=== PATIENT | female | born 2005 | race Hispanic/Latino ===

== ENCOUNTER 2024-10-15 19:34 | Emergency (ER) | payer OTHER ==
[~2024-10-15] VITALS: Ht 167.6 cm; Wt 72.6 kg
--- NOTE | 2024-10-15 19:54 | ERN ---
ED Note History of Present Illness Stated Complaint: KNEE PAIN, HURTS TO MOVE Chief Complaint: Knee Injury/Swelling Time Seen by MD: 19:35 Time Seen by Midlevel: 19:35 Dictation: The patient is a 19-year-old female with no significant medical history who presents to the emergency department with complaints of left knee pain. Patient reports that two months ago she had a fall and injured her knee and it has been hurting since but today at work around 11:00 a.m. she fell on her knee again while cleaning due the pain. Denies any other injuries. Allergies: Coded Allergies: No Known Allergies (Unverified Allergy, Unknown, 10/15/24) Past Medical History Past Medical History: No Pertinent History Surgical History: None LMP: Oct 07, 2024 RN Note Reviewed/Agreed w/PFSH: Yes Review of System Dictation Constitutional: Negative for fever,chills, and weight loss Eyes: Negative for injury, pain,redness, and discharge ENT: Negative for injury,pain or swelling Cardiovascular: Negative for chest pain, palpitations, and edema Respiratory: Negative for shortness of breath, cough, and wheezing, Abdomen/GI: Negative for abdominal pain, nausea, vomiting, diarrhea, and constipation Back: Negative for injury and pain : Negative for injury, bleeding and discharge MS/Extremity: positive for left knee pain Skin: Negative for rash, and discoloration Neuro: Negative for headache, weakness, numbness, tingling, and seizure Psych: Negative for suicide ideation, homicidal ideation, and hallucinations Initial Vital Sign VS Vital Signs Date Time Temp Pulse Resp B/P (MAP) Pulse Ox O2 Delivery O2 Flow Rate FiO2 10/15/24 19:35 98.6 87 20 135/69 100 Room Air Physical Exam Dictation Vital Signs reviewed General Appearance: Alert, oriented x 3, no acute distress, well developed, nourished. Head and Face: non-traumatic. Eyes: PERRL, pink conjunctivas, eyelid no trauma, anterior chamber with arcus senilis. Ears: Pinnas intact and no signs of trauma or erythema ear canals clear and no discharge TM no erythema Nose: No discharge, no bleeding. Oropharynx: Mouth normal, tongue pink. pharynx clear,no erythema, tonsils no exudates, no abscesses noted, mucous membrane moist Neck: Supple, non-tender, no thyromegaly, no masses, no JVD, no bruits Breast:Deferred Chest:No tenderness, no crepitus, no paradoxical movement, no retractions Lungs:Clear, well-ventilated, symmetric, no rales, no wheezing, no rhonchi, no stridor, good breath sounds bilaterally Heart: Regular rate, regular rhythm, no murmur, no gallops Vascular: no peripheral edema, cap refill less than 2 seconds, dorsalis pedis 3+ bilaterally Abdomen: Soft, positive bowel sounds, nondistended, no guarding, nontender, no rebound, no masses no hepatomegaly, no splenomegaly, no Scales's sign, no hernias. Rectal: Deferred Genital: Deferred Neurological: Normal speech, motor function intact, sensory function intact Musculoskeletal: Neck nontender, full range of motion, back nontender, full range of motion, Extremities: nontender, full range of motion , no open wounds to knee, full range of motion, ambulatory Skin: Color pink, dry, no turgor, no rash, no lacerations, no abrasions, no contusions. Lymphatic: Deferred Results (Laboratory/Radiology) Laboratory/Radiology Laboratory Tests Test 10/15/24 20:10 Urine HCG, Qualitative NEGATIVE (NEGATIVE) REASON: pain, injury ORDERING PHYSICIAN: MANAS GIL COMMUTATOR OPERATOR PROCEDURE: KNEE 3V LT - KNEE 3VWS LT KNEE 3VWS LT HISTORY: Pain COMPARISON: None TECHNIQUE: 3 images of left knee were obtained. FINDINGS: There is no acute displaced fracture or dislocation. Soft tissue swelling is seen. IMPRESSION: 1. Findings as described above. Labs Reviewed?: Yes ED Course ED Course Orders Procedure Category Date Status Time ,Urine Test LAB 10/15/24 Complete 19:45 Knee 3vws Lt RAD 10/15/24 Resulted 19:45 Ketorolac 60mg/2ml PHA 10/15/24 Complete (Toradol 60mg/2ml) 20:00 Current Medications Medications (Trade) Dose Ordered Sig/Fay Route PRN Reason Start Time Stop Time Status Last Admin Dose Admin Ketorolac Tromethamine (toRADol 60MG/ 2ML) 60 mg ONCE ONCE IM 10/15/24 20:00 10/15/24 20:01 DC Vital Signs Date Time Temp Pulse Resp B/P (MAP) Pulse Ox O2 Delivery O2 Flow Rate FiO2 10/15/24 19:35 98.6 87 20 135/69 100 Room Air Medical Decision Making MDM The patient is a 19-year-old female with no significant medical history who presents to the emergency department with complaints of left knee pain. Patient reports that two months ago she had a fall and injured her knee and it has been hurting since but today at work around 11:00 a.m. she fell on her knee again while cleaning due the pain. Denies any other injuries. X-ray showed no acute fractures or dislocations. Small soft tissue swelling. Patient ambulatory, neurovascularly intact. Will be placed on a knee immobilizer and instructed to follow up with PCP. Differential diagnosis: Knee dislocation, knee fracture, knee sprain Need for hospitalization: Patient does not meet criteria for hospitalization. There are no social concerns with this patient. DX & DISP Disposition: Discharge Departure Impression: Primary Impression: Left knee sprain Condition: Stable Scripts Ibuprofen (Ibuprofen) 600 Mg Tablet 600 MG PO Q6H PRN for PAIN, #15 TAB Prov: MANAS GIL 10/15/24 Additional Instructions: Please follow up with your primary doctor in 1-2 days. Avoid any physical activity that can further injure your knee. FOLLOW-UP WITH PRIMARY CARE PROVIDER IN 1 TO 2 DAYS. TAKE MEDICATIONS DIRECTED HERE IN THE EMERGENCY ROOM. OKAY TO CONTINUE HOME MEDICATIONS UNLESS OTHERWISE DISCUSSED DURING YOUR VISIT IN THE EMERGENCY ROOM TODAY. RETURN TO YOUR NEAREST EMERGENCY ROOM IF SYMPTOMS WORSEN OR IF THERE IS NO IMPROVEMENT. CALL 911 IF YOU NEED IMMEDIATE ASSISTANCE. TAKE TYLENOL OR MOTRIN [id number] NEEDED AND IF NO CONTRAINDICATIONS ARE PRESENT. INCREASE ORAL HYDRATION. A WOUND CULTURE OR URINE CULTURE WAS ORDERED HERE IN THE EMERGENCY ROOM DEPARTMENT PLEASE FOLLOW-UP WITH PRIMARY CARE PROVIDER AND ADVISE THEM TO GET REPEAT PORTS FROM OUR FACILITY. IF YOU HAD ANY OSCAR WRAP/SPLINTS THAT WERE APPLIED HERE, PLEASE DO NOT REMOVE THEM UNTIL YOU SEE YOUR PRIMARY CARE OR SPECIALTY. Referrals: SELF,REFERRAL (PCP) GRETTA LOCKETT MD Time of Disposition: 20:31 I have reviewed the case, and I agree with, Diagnosis and Plan MANAS GIL Oct 15, 2024 19:54
--- NOTE | 2024-10-15 20:25 | HMCIMG ---
KNEE 3VWS LT HISTORY: Pain COMPARISON: None TECHNIQUE: 3 images of left knee were obtained. FINDINGS: There is no acute displaced fracture or dislocation. Soft tissue swelling is seen. IMPRESSION: 1. Findings as described above.
[2024-10-15] MEDS: ketOROlac 60 MG VIAL (30MG/ML) IM ONE (20:31)
[2024-10-15] MEDS ORDERED: IBUP-2070 PO (20:32)
--- NOTE | 2024-10-15 20:42 | NUR ---
KNEE IMMOBILIZER APPLIED TO LEFT KNEE. CRUTCH USE EDUCATION GIVEN TO PT
[2024-10-15 20:59] VITALS: BP 112/61; PULSE 78; RESP 18; TEMP 97.5; O2SAT 98
== END 2024-10-15 21:00 | disposition home or self-care (01) ==
LOC: EDH 19:34
DX: S83.92XA Sprain of unspecified site of left knee, initial encounter (principal); W18.39XA Other fall on same level, initial encounter; Y93.89 Activity, other specified; Y92.89 Other specified places as the place of occurrence of the external cause; Y99.8 Other external cause status
CPT/HCPCS: 99284; 29505; 81025; 73562; 96372; J1885

== ENCOUNTER 2025-02-28 21:50 | Emergency (ER) | payer MEDICAID ==
[~2025-02-28] VITALS: Ht 162.6 cm; Wt 77.6 kg
[~2025-02-28 21:50] MED LIST: IBUP-1492 PO
[2025-02-28 22:15] VITALS: BP 130/76; PULSE 103; RESP 20; TEMP 99.6; O2SAT 97
[2025-02-28] MEDS: LACTATED RINGERS 1000ML IV STA (22:30)
--- NOTE | 2025-02-28 22:35 | ERN ---
General Chief Complaint: OB<20 weeks gest. Stated Complaint: C/O N X V, 8 WKS Time Seen by MD: 21:59 Source: patient History of Present Illness Initial Comments 19-year-old female eight weeks comes in with new onset of nausea vomiting for the last 10 hours. In addition she has lower and right sided abdominal pain and cramps as well as chills. She reports no blood coming out of her vagina and no dysuria. Timing/Duration: 4-6 hours Allergies: Coded Allergies: No Known Allergies (Unverified Allergy, Unknown, 10/15/24) Home Meds Active Scripts Ibuprofen (Ibuprofen) 600 Mg Tablet, 600 MG PO Q6H PRN for PAIN, #15 TAB Prov:MANAS GIL OUTSIDE PRODUCTION INSPECTOR 10/15/24 Past Medical History Past Medical History: No Pertinent History Past Surgical History: None Female( History) LMP: Dec 30, 2024 : 1 Para: 0 Aborts: 0 Constitutional: (+) chills EENTM: (-) eye pain, (-) blurred vision, (-) tearing, (-) double vision, (-) ear pain, (-) ear discharge, (-) nose pain, (-) nose congestion, (-) throat pain, (-) Throat swelling, (-) mouth pain, (-) tooth pain, (-) mouth swelling, (-) other documentation Respiratory: (-) cough, (-) orthopnea, (-) short of breath, (-) stridor, (-) wheezing, (-) other documentation Cardiovascular: (-) chest pain, (-) edema, (-) palpitations, (-) syncope, (-) dyspnea on exertion, (-) other documentation Gastrointestinal/Abdominal: (+) nausea, (+) vomiting Genitourinary: (-) vaginal discharge, (-) vaginal bleeding, (-) dysuria, (-) frequency, (-) hematuria, (-) pain, (-) other documentation Physical Exam General Appearance: (+) moderate distress Orientation: (+) alert, (+) oriented x 3 Head/Face Trauma: No Eye: bilateral eye normal inspection, bilateral eye PERRL, bilateral eye EOMI Ear, Nose, Throat: (+) hearing grossly normal, (+) normal ENT inspection, (+) moist mucous membraine Neck: (+) normal inspection, (+) supple, (+) full range of motion Respiratory: (+) chest non-tender, (+) lungs clear, (+) well ventilated Heart: (+) regular, (+) no gallop Vascular: (+) no edema, (+) normal peripheral pulse Gastrointestinal: (+) soft, (+) non-tender, (+) bowel sound present Results Laboratory and Microbiology Lab and Micro Result Laboratory Tests Test 02/28/25 22:23 02/28/25 22:29 Urine Color YELLOW (YELLOW) Urine Appearance CLEAR (CLEAR) Urine pH 5.5 (5.0-8.0) Urine Specific Davidson 1.028 (1.001-1.031) Urine Protein 10 mg/dL (NEGATIVE) H Urine Glucose (UA) NEGATIVE mg/dL (NEGATIVE) Urine Ketones NEGATIVE mg/dL (NEGATIVE) Urine Occult Blood NEGATIVE (NEGATIVE) Urine Nitrate NEGATIVE (NEGATIVE) Urine Bilirubin NEGATIVE mg/dL (NEGATIVE) Urine Urobilinogen 0.2 mg/dL (0.2-1.0) Urine Leukocyte Esterase NEGATIVE Deborah/uL Urine RBC 0-1 /HPF (0-1) Urine WBC 2-5 /HPF (0-1) H Urine Squamous Epithelial Cells FEW /HPF (0-2) Urine Bacteria None /HPF (None Seen) White Blood Count 9.6 K/uL (4.8-10.8) Red Blood Count 5.09 MIL/uL (4.00-5.50) Hemoglobin 11.9 g/dL (12.0-16.0) L Hematocrit 37.2 % (36-48) Mean Corpuscular Volume 73.1 fL (80-100) L Mean Corpuscular Hemoglobin 23.4 pg (27.0-33.0) L Mean Corpuscular Hemoglobin Concent 32.0 g/dL (32.0-36.0) Red Cell Distribution Width 15.9 % (11.0-15.5) H Platelet Count 381 K/uL (130-400) Mean Platelet Volume 9.8 fL (7.5-10.5) Immature Granulocyte % (Auto) 0.2 % (0-1) Neutrophils (%) (Auto) 85.5 % (40.0-77.0) H Lymphocytes (%) (Auto) 10.3 % (21.0-51.0) L Monocytes (%) (Auto) 3.7 % (3.0-13.0) Eosinophils (%) (Auto) 0.1 % (0.0-8.0) Basophils (%) (Auto) 0.2 % (0.0-5.0) Neutrophils # (Auto) 8.2 K/uL (1.8-7.7) H Lymphocytes # (Auto) 1.0 K/uL (1.0-4.8) Monocytes # (Auto) 0.4 K/uL (0.1-1.0) Eosinophils # (Auto) 0.01 K/uL (0.00-0.70) Basophils # (Auto) 0.02 K/uL (0.00-0.20) Absolute Immature Granulocyte (auto 0.02 K/uL (0-1) Nucleated Red Blood Cells 0.0 % (0.0-0.19) Red Blood Cell Morphology See comments Sodium Level 135 mmol/L (136-145) L Potassium Level 3.3 mmol/L (3.5-5.1) L Chloride Level 100 mmol/L (101-111) L Carbon Dioxide Level 25 mmol/L (21-32) Blood Urea Nitrogen 5 mg/dL (7-18) L Creatinine 0.6 mg/dL (0.5-1.0) Glomerular Filtration Rate Calc 132 mL/min (>90) Random Glucose 114 mg/dL (70-105) H Total Calcium 8.9 mg/dL (8.5-10.1) Magnesium Level 1.80 mg/dL (1.80-2.40) Total Bilirubin 0.6 mg/dL (0.2-1.0) Aspartate Amino Transf (AST/SGOT) 20 U/L (10-37) Alanine Aminotransferase (ALT/SGPT) 26 U/L (12-78) Alkaline Phosphatase 68 U/L (50-136) Total Protein 7.5 g/dL (6.0-8.3) Albumin 3.6 g/dL (3.5-5.0) Human Chorionic Gonadotropin, Quant 832793 mIU/mL (0-5) H MDM MDM: Differential diagnosis: Hyperemesis gravidarum, UTI, gastroenteritis, , hypovolemia Rationale: Tests considered and ordered secondary to shared decision making include: Previous outside records reviewed: Old ER visits. Risk of complication and/or morbidity or mortality of patient management: None Medications-Per medication reconciliation Need for hospitalization: Patient does meet criteria for hospitalization. Need for emergency major/minor surgery: No There are no social concerns with this patient. Prescription drug management Prescriptions will include symptomatic care Patient's prior external medical records from other ER visits were reviewed by me as indicated. Prior testing and results from previous visits were reviewed. Prior tests were taken into account with medical decision making and resource utilization, independent historian/historians were used to obtain complete medical history. I independently interpreted the test that were performed, results were reviewed by me and considered findings on radiology if ordered. Patient's laboratory studies are all normal. Her quantitative beta HCG is consistent with her stated age of . CBC is normal chemistry panel is normal and UA is normal. Patient does feel less dehydrated after receiving a L of fluids. She still has the emesis and. Pyridoxine did not help. ED Course Orders Procedure Category Date Status Time Pyridoxine Hcl 50 Mg PHA 02/28/25 Complete Tablet (Pyridoxine 22:30 Lactated Ringers PHA 02/28/25 Complete 1000ml (Lactated 22:16 Cbc With Differential LAB 02/28/25 Complete 22:16 Comprehensive LAB 02/28/25 Complete Metabolic Panel 22:16 Magnesium LAB 02/28/25 Complete 22:16 Urinalysis Profile LAB 02/28/25 Complete 22:16 Hcg,Quantitative LAB 02/28/25 Complete 22:29 Current Medications Medications (Trade) Dose Ordered Sig/Fay Route PRN Reason Start Time Stop Time Status Last Admin Dose Admin Lactated Ringer's (Lactated Ringers 1000ml) 1,000 ml BOLUS STAT IV 02/28/25 22:16 02/28/25 22:20 DC 02/28/25 22:30 Pyridoxine HCl (PYRIDoxine HCL 50 MG TABLET) 50 mg ONCE ONCE PO 02/28/25 22:30 02/28/25 22:31 DC 02/28/25 22:29 Vital Signs Date Time Temp Pulse Resp B/P (MAP) Pulse Ox O2 Delivery O2 Flow Rate FiO2 02/28/25 22:15 99.7 103 20 130/76 97 Room Air* 0 21 02/28/25 21:52 100.0 104 20 123/62 97 Room Air DX & DISP Disposition: Discharge Departure Impression: Primary Impression: Vomiting Condition: Stable Additional Instructions: You came in with feelings of dehydration +nausea and vomiting. +you had concerns about the health of your baby. The quantitative beta HCG test shows that the is thriving. Are laboratory studies showed a normal complete blood cell count and a normal chemistry panel and then normal urine analysis. You do not have a urinary tract infection. He did say that you feel less dehydrated with the fluids. I think it is safe for you to go home you can drink Pedialyte and fluids to stay well hydrated. Please call your acquisitions logistics analyst in the morning to see if she has medications that could help with your nausea and vomiting. Referrals: SELF,REFERRAL (PCP) IBAN ANDUJAR MD Feb 28, 2025 22:35
[2025-02-28 22:42] LABS: IMMATURE GRANULOCYTE ABSOLUTE 0.02 K/uL (0-1); NUCLEATED RED BLOOD CELLS 0.0 % (0.0-0.19); PLATELET COUNT (AUTO) 381 K/uL (130-400); RED BLOOD CELL COUNT(AUTO) 5.09 MIL/uL (4.00-5.50); RED CELL DISTRIBUTION WIDTH 15.9 % (11.0-15.5); WHITE BLOOD COUNT (AUTO) 9.6 K/uL (4.8-10.8)
[2025-02-28 22:57] LABS: CREATININE 0.6 mg/dL (0.5-1.0); GLOMERULAR FILTR. RATE CALC 132.0 mL/min (>90); GLUCOSE,RANDOM 114.0 mg/dL (70-105); SODIUM SERUM 135.0 mmol/L (136-145); UREA NITROGEN, BLOOD 5.0 mg/dL (7-18)
[2025-02-28 23:06] LABS: APPEARANCE,URINE CLEAR (CLEAR); GLUCOSE, URINE (UA) NEGATIVE (NEGATIVE); LEUKOCYTE ESTERASE ,URINE NEGATIVE Leu/uL (NEGATIVE); NITRATE,URINE NEGATIVE (NEGATIVE); OCCULT BLOOD,URINE NEGATIVE (NEGATIVE)
[2025-02-28 23:07] LABS: ADD UA MICROSCOPIC YES
[2025-02-28 23:09] LABS: SQUAMOUS EPITHELIAL CELL,UR FEW /HPF (0-2)
[2025-02-28 23:30] LABS: ASPARTATE AMINOTRANSFERASE 20.0 U/L (10-37); HCG,QUANTITATIVE 128777.0 mIU/mL (0-5); TOTAL PROTEIN, SERUM 7.5 g/dL (6.0-8.3)
== END 2025-03-01 00:47 | disposition home or self-care (01) ==
LOC: EDH 21:50
DX: O21.9 Vomiting of pregnancy, unspecified (principal); O26.891 Other specified pregnancy related conditions, first trimester; R10.2 Pelvic and perineal pain; Z3A.08 8 weeks gestation of pregnancy
CPT/HCPCS: 99283; 83735; 80053; 84702; 85025; 81001; 36415; J7120